=== PATIENT | female | born 1960 | race Caucasian/White ===

== ENCOUNTER 2022-05-25 06:56 | Emergency (ER) | payer BC, SELFPAY ==
[2022-05-25 06:57] VITALS: PULSE 86; RESP 16; TEMP 36.1; O2SAT 100; BMI 26.7
[2022-05-25 06:59] VITALS: BP 131/80
--- NOTE | 2022-05-25 07:12 | ED.VIS.BACK ---
HPI History of Present Illness Chief Complaint: Back Detail of Chief Complaint: Back pain x3 weeks Informant: patient Narrative Narrative: Patient presents to the emergency department complaint of back pain that initially started about 3 weeks ago. 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 Patient 5 days ago went to urgent care and had x-rays of her back which showed some degenerative changes and some disc space narrowing between L2 and 3. Patient was started on prednisone and Flexeril initially had good pain relief with that. This morning she woke up with more pain in her back. She describes intermittent pain radiating down her legs. She denies weakness in extremities. She denies loss of bowel or bladder function. Patient denies urinary symptoms. She denies fever. Prior similar symptoms: No PFSH PFSH Home Medications hydrocodone-acetaminophen 5-325mg 5mg-325mg 1 tab PO Q4H PRN PRN Pain 3 days #15 TABLETS 05/25/22 [Rx Last Taken Unknown] Allergy/AdvReac Type Severity Reaction Status Date / Time tramadol AdvReac Itching Verified 05/25/22 06:57 Social History Smoking Status: Never smoker ROS ROS ED Review of Systems ROS Unobtainable: other Constitutional Constitutional ED: Reports lethargy; Denies chills, fever(s), sweats or weight loss Eyes Eyes: Denies blurry vision, change in vision or diplopia ENT ENT ED: Denies rhinorrhea or sore throat Cardiovascular Cardiovascular: Denies chest pain, orthopnea or racing heartbeat Respiratory/Chest Respiratory/Chest: Reports dyspnea and dyspnea on exertion; Denies cough, orthopnea or sputum Gastrointestinal Gastrointestinal: Denies abdominal pain, diarrhea, nausea or vomiting Genitourinary Genitourinary ED: Denies dysuria, hematuria or urinary frequency Musculoskeletal Musculoskeletal: Reports back pain; Denies arthralgias, myalgias or neck pain Integumentary Denies abscess, Abrasions or rash Neurologic Neurologic: Denies headache(s) or weakness Psychiatric Psychiatric: Denies anxiety, depression or suicidal thoughts Endocrine Endocrinology: Denies polydipsia, polyphagia or polyuria Hematologic/Lymphatic Hematologic/Lymphatic: Denies easy bleeding, easy bruising or lymphadenopathy Allergic/Immunologic Allergic/Immunologic ED: Denies mouth swelling, tongue swelling or urticaria EXAM Physical Exam Const Vital Signs: 05/25/22 06:57 05/25/22 06:59 Temperature 97.0 F L Temperature Source Temporal Pulse Rate 86 Respiratory Rate 16 Blood Pressure 131/80 H Blood Pressure Mean 97 Pulse Ox 100 Oxygen Delivery Method Room Air Positive well nourished and well developed General Appearance ED: well developed and NAD HEENT Reports TM's clear and moist mucous membranes normocephalic and atraumatic; Negative for trauma or tenderness Tympanic Membrane ED: Yes TM's clear Eyes PERRL and EOMs intact bilaterally General Eye ED: Negative for pale conjunctiva or scleral icterus Neck no lymphadenopathy, supple and no JVD General: Negative for tenderness Chest Wall inspection of chest normal and palpation of chest normal Chest: Negative for tenderness Resp normal respiratory effort and clear to auscultation bilaterally Effort and Inspection: Negative for respiratory distress or pain with movement Auscultation: Negative for rhonchi, wheezes or diminished lung sounds Cardio regular rate, regular rhythm, S1 normal heart sound, S2 normal heart sound and no murmurs Peripheral Pulses: pulses 2+ throughout GI normal to inspection, nondistended, normoactive bowel sounds, soft to palpation, non-tender, non-distended and no masses Back/Spine no CVA tenderness and no thoracic nor lumbar tenderness Back/Spine Narrative: I am unable to reproduce patient's pain with palpation of her back. She describes the pain as over the area of the L5 region along the area of the iliac crest bilaterally. Patient has negative straight leg raises. Deep tendon reflexes are plus 3 out of 4 bilaterally at the Achilles and patella. She has normal L5 extension bilaterally. Normal sensation to light touch. Extremity normal to inspection General Extremety ED: Negative for edema General Extremity: Negative for edema Neuro oriented x3, CN's II-XII intact bilaterally, no sensory deficits noted and gait normal Sensorium / Orientation: awake, alert, oriented to person, oriented to place and oriented to time Motor Exam: strength 5/5 throughout and strength abnormal Psych mental status grossly normal Skin no rashes or lesions noted and no wounds MDM MDM MDM Narrative Medical decision making narrative: Patient with back pain for about 3 weeks. Suspect possibility of radiculopathy. Patient has had x-rays that were negative for fracture. She will be given a dose of Dilaudid and Zofran IM here for pain control. Patient will be given a prescription for [place] for pain. She is advised to follow-up with her primary care physician or orthopedic surgeon within the next 3 to 5 days. I do not feel MRI emergently is indicated as she has no red flag symptoms or signs. Patient advised to return to the ER if worsening pain, weakness in extremities, change in bowel or bladder function, or condition worsen anyway. Lab Data Attestation: I reviewed the patient's lab results. Discharge Plan Triage Chief Complaint: Back ED Provider: Dorinda Gomez Dx/Rx/DC Orders Clinical Impression: Back pain, Lumbar radiculopathy Instructions: ED Back Sprain/Strain, ED Sciatica Prescriptions: New hydrocodone-acetaminophen [hydrocodone-acetaminophen] 5-325 mg tablet 1 tab PO Q4H PRN PRN (Reason: Pain) 3 Days Qty: 15 0RF Primary Care Provider: Becky Pinon Referrals: Becky Pinon MD [Primary Care Provider] - 3-5 Days Sukhdev Kaufman MD [STAFF PHYSICIAN] - 3-5 Days Disposition Disposition: Home, Self Care
[2022-05-25] MEDS: HYDROmorphone 1 MG/ML Syringe IM (07:43)
[2022-05-25] MEDS: Ondansetron 4 MG/2 ML Vial IM (07:43)
== END 2022-05-25 08:20 | disposition home or self-care (01) ==
LOC: ED 07:20
PROVIDERS: Emergency Provider Emergency Medicine; PCP Internal Medicine; Visit Provider Emergency Medicine
DX: M51.16 Intervertebral disc disorders with radiculopathy, lumbar region (principal)
CPT/HCPCS: 96372; 99282; J2405